=== PATIENT | male | born 1995 | race Caucasian/White ===

== ENCOUNTER 2020-01-22 11:11 | Emergency (ER) | payer OTHER ==
[2020-01-22] MEDS ORDERED: Fentanyl 100 MCG/2 ML VIAL ONE ×2 (11:20→13:00)
[2020-01-22] MEDS ORDERED: Adacel (T-DAP) 0.5 ML SYRINGE ONE (11:20)
[2020-01-22] MEDS ORDERED: Ondansetron PF 4 MG/2 ML Vial ONE (11:27)
[2020-01-22 11:32] LABS: #Basophils 0.1 thou/uL (0.0-0.2); #Eosinphils 0.3 thou/uL (0.0-0.7); #Lymphocytes 2.1 thou/uL (1.20-3.40); #Monocytes 0.7 thou/uL (0.11-0.59); #Neutrophils 4.1 thou/uL (1.40-6.50); %Basophils 0.9 % (0.0-1.0); %Eosinophils 4.4 % (0.0-10.0); %Monocytes 9.6 % (0.0-10.0); %Neutrophils 56.2 % (42.0-75.0); Hemoglobin 16.8 g/dL (14.0-18.0); Mean Corpuscular HGB CONC 33.5 g/dL (32.0-36.0); Mean Corpuscular Hemoglobin 30.5 pg (27.0-31.0); Mean Corpuscular Volume 91.2 fL (78.0-98.0); Platelet Count 276 thou/uL (130-400); RBC Distribution Width 11.6 % (11.5-14.5); Red Blood Cell (RBC) Count 5.52 mill/uL (4.70-6.10); White Blood Cell (WBC) Count 7.2 thou/uL (4.8-10.8)
[2020-01-22 11:41] LABS: INR-International Normal Ratio 0.9; PTT 26.5 SEC (22.9-36.1); Prothrombin Time 12.5 SEC (12.0-14.7)
--- NOTE | 2020-01-22 12:00 | RAD ---
XR Chest 1 View Portable HISTORY: Chest pain COMPARISON: None FINDINGS: The heart size is normal. The lungs are well expanded without focal areas of consolidation, pneumothorax or pleural effusions. IMPRESSION: No radiographic evidence of acute cardiopulmonary process.
[2020-01-22 12:07] LABS: ALT (SGPT) 52 U/L (8-55); AST (SGOT) 31 U/L (5-34); Albumin 4.9 g/dL (3.5-5.0); Alcohol Less than 10 mg/dL (Less than 10); Alkaline Phosphatase 79 U/L (40-110); Anion Gap 13 mmol/L (10-20); BUN (Urea Nitrogen) 16 mg/dL (8.9-20.6); Bilirubin, Total 0.8 mg/dL (0.2-1.2); Calc. Creatinine Clearance 0 mL/min (70-130); Calcium 9.6 mg/dL (7.8-10.44); Carbon Dioxide 24 mmol/L (22-29); Chloride 104 mmol/L (98-107); Estimated GFR-MDRD 82; Globulin 2.7 g/dL (2.4-3.5); Glucose 113 mg/dL (70-105); Potassium 3.7 mmol/L (3.5-5.1); Protein, Total 7.6 g/dL (6.0-8.3); Sodium 137 mmol/L (136-145)
[2020-01-22 13:26] LABS: Bilirubin Negative (Negative); Blood, Urine Negative (Negative); Clarity Clear (Clear); Glucose, Urine (Dipstick) Normal (Negative); Leukocyte Negative Leu/uL (Negative); Nitrite Negative (Negative); Protein, Urine (Dipstick) Negative (Neg-Trace); Urobilinogen Normal mg/dL (Less than 2)
== END 2020-01-22 13:17 | disposition short-term general hospital (02) ==
LOC: ERS 11:11
DX: T20.24XA Burn of second degree of nose (septum), initial encounter (principal); T20.212A Burn of second degree of left ear [any part, except ear drum], initial encounter; T20.211A Burn of second degree of right ear [any part, except ear drum], initial encounter; T21.01XA Burn of unspecified degree of chest wall, initial encounter; T21.02XA Burn of unspecified degree of abdominal wall, initial encounter; T22.012A Burn of unspecified degree of left forearm, initial encounter; T23.022A Burn of unspecified degree of single left finger (nail) except thumb, initial encounter; T31.11 Burns involving 10-19% of body surface with 10-19% third degree burns; R74.0 Nonspecific elevation of levels of transaminase and lactic acid dehydrogenase [LDH]; X97.XXXA Assault by smoke, fire and flames, initial encounter
CPT/HCPCS: 36415; 71045; 80053; 80307; 81003; 83605; 85025; 85610; 85730; 90471; 90715; 96361; 96365; 96366; 96374; 96375; 96376; J0690; J2405; J3010